=== PATIENT | male | born 1985 | race Two or more races ===

== ENCOUNTER 2019-11-28 15:00 | Emergency (ER) | payer SELFPAY ==
[~2019-11-28] VITALS: Ht 167.6 cm; Wt 72.6 kg
[2019-11-28 16:02] VITALS: BP 136/90; Ht 167.6 cm; Wt 72.6 kg
== END 2019-11-28 16:10 | disposition home or self-care (01) ==
LOC: ED 15:00
DX: U07.1 COVID-19 (principal); J12.89 Other viral pneumonia
CPT/HCPCS: U0003-CS

== ENCOUNTER 2019-12-12 13:29 | Emergency (ER) | payer SELFPAY | END 2019-12-12 13:50 | disposition left against medical advice (07) | LOC: ED 13:29 | DX: Z53.21 Procedure and treatment not carried out due to patient leaving prior to being seen by health care provider (principal) ==

== ENCOUNTER 2020-05-21 12:06 | Emergency (ER) | payer SELFPAY ==
[~2020-05-21] VITALS: Ht 172.7 cm; Wt 72.6 kg
[2020-05-21 12:51] VITALS: Ht 172.7 cm; Wt 72.6 kg
[2020-05-21 13:26] LABS: BASOPHIL % 1.1 % (0.2-1.5); PLATELET COUNT 192 x10^3mcL (152-348); RED CELL DISTRIBUTION WIDTH 13.6 % (12.1-16.2)
[2020-05-21 13:46] LABS: GFR1 > 60 mL/min; POTASSIUM SERUM 4.2 mmol/L (3.5-5.1); SODIUM SERUM 140 mmol/L (136-145)
[2020-05-21 13:50] LABS: ALBUMIN 4.4 g/dL (3.4-5.0); ALT/SGPT 49 U/L (16-63); AST/SGOT 23 U/L (15-37); CALCIUM 9.6 mg/dL (8.5-10.1); CARBON DIOXIDE 28.9 mmol/L (21-32); CHLORIDE SERUM 102 mmol/L (98-107); GLUCOSE SERUM 97 mg/dL (74-106); LIPASE 98 IU/L (73-393)
[2020-05-21 14:00] LABS: BILIRUBIN TOTAL 0.48 mg/dL (0.20-1.00); TOTAL PROTEIN, SERUM 8.1 g/dL (6.4-8.2)
[2020-05-21 14:02] LABS: ALKALINE PHOSPHATASE 67 U/L (46-116)
[2020-05-21 17:21] VITALS: BP 139/97
== END 2020-05-21 17:21 | disposition home or self-care (01) ==
LOC: ED 12:06
PROVIDERS: Student in an Organized Health Care Education/Training Program
DX: K57.92 Diverticulitis of intestine, part unspecified, without perforation or abscess without bleeding (principal)
CPT/HCPCS: J1885; J2543

== ENCOUNTER 2020-05-22 00:48 | Emergency (ER) | payer SELFPAY ==
[~2020-05-22] VITALS: Ht 170.2 cm; Wt 74.4 kg
[2020-05-22 01:14] VITALS: BP 145/102; Ht 170.2 cm; Wt 74.4 kg
== END 2020-05-22 01:26 | disposition home or self-care (01) ==
LOC: ED 00:48
DX: R10.31 Right lower quadrant pain (principal); R10.32 Left lower quadrant pain